=== PATIENT | female | born 1940 | race Caucasian/White ===

== ENCOUNTER 2017-10-01 07:17 | Day surgery (SDC) | payer MEDICARE, MEDICAID ==
[~2017-10-01] VITALS: Ht 162.6 cm; Wt 83.8 kg
[2017-10-01] VITALS (14 sets, daily range): BP systolic 128–176; BP diastolic 61–95
[~2017-10-01 07:17] MED LIST: ACET-2119 PO; ASPI81TA52 PO; CARV25TA2 PO; DOCU-28 PO; FURO40TA4 PO; HYDR-565 PO; MUPI22OI30 TP; POLY17PO10 PO; POTA10TA19 PO; SITA1TBM7 PO; SPIR25TA PO
[2017-10-01] MEDS ORDERED: FURO20TA4 PO (07:55)
[2017-10-01] MEDS ORDERED: normal saline 1000ml 1,000 ML IV PRN (08:00)
[2017-10-01] MEDS: albumin (human) 25% 100 ML IV solution IV PRN ×3 (09:42→10:43)
== END 2017-10-01 11:50 | disposition home or self-care (01) ==
LOC: SSTAY O 07:17
PROVIDERS: ATTEND Radiology Vascular & Interventional Radiology
DX: R18.8 Other ascites (principal); E11.22 Type 2 diabetes mellitus with diabetic chronic kidney disease; I12.9 Hypertensive chronic kidney disease with stage 1 through stage 4 chronic kidney disease, or unspecified chronic kidney disease; N18.9 Chronic kidney disease, unspecified; K76.6 Portal hypertension; K74.60 Unspecified cirrhosis of liver; Z79.01 Long term (current) use of anticoagulants; Z79.82 Long term (current) use of aspirin; Z95.1 Presence of aortocoronary bypass graft; Z88.6 Allergy status to analgesic agent; Z88.8 Allergy status to other drugs, medicaments and biological substances; Z79.899 Other long term (current) drug therapy
CPT/HCPCS: 49083; A6257; J7030; P9047